=== PATIENT | female | born 1990 | race Caucasian/White ===

== ENCOUNTER 2017-10-17 17:30 | Observation (INO) | payer MEDICAID ==
[2017-10-17] MEDS ORDERED: Sodium Chloride 0.9% 5 ML Syringe FLUSH PRN (17:45)
[2017-10-17] MEDS ORDERED: Sodium Chloride 0.9% 1,000 ML IV SCH (17:45)
[2017-10-17] MEDS: Ondansetron 4 MG/2 ML SDV IV PRN ×2 (18:36→22:36)
[2017-10-17] MEDS ORDERED: PROMETHAZINE TOP PRN (18:44)
[2017-10-17] MEDS ORDERED: Albuterol HFA 18 Gm Inhaler INH PRN (18:44)
[2017-10-17] MEDS: Dextrose 5%-0.45% NaCl 1,000 ML IV SCH (19:52)
[2017-10-17] MEDS: Piperacillin/Tazobactam 3.375 GM in Sodium Chloride 0.9% 50 ML IV SCH (20:00)
[2017-10-17] MEDS ORDERED: Piperacillin/Tazobactam/Dext 3.375 GM in Premix Bag 1 BAG IV ONE (20:00)
[2017-10-17] MEDS: MICONAZOLE TOP SCH (22:20)
[2017-10-17] MEDS: Acetaminophen 325 MG Tab PO PRN (22:40)
[2017-10-17] MEDS ORDERED: Acetaminophen 325 MG Tab ONE (22:46)
[2017-10-18] MEDS: Piperacillin/Tazobactam 3.375 GM in Sodium Chloride 0.9% 50 ML IV SCH ×2 (02:07→08:26)
[2017-10-18] MEDS: Ondansetron 4 MG/2 ML SDV IV PRN ×4 (06:37→20:36)
[2017-10-18] MEDS: Dextrose 5%-0.45% NaCl 1,000 ML IV SCH ×2 (06:59→18:22)
[2017-10-18 07:37] LABS: CHLORIDE,CL 102 mmol/L (98-115); SODIUM,NA 134 mmol/L (136-145)
[2017-10-18] MEDS: Acetaminophen 325 MG Tab PO PRN (08:30)
[2017-10-18] MEDS: busPIRone 5 MG Tab PO SCH ×2 (10:36→23:23)
[2017-10-18] MEDS: Venlafaxine 37.5 MG Cap.ER PO SCH (10:36)
--- NOTE | 2017-10-18 12:51 | PN ---
10/18/2017 PATIENT NAME: JEREMY DUMONT CHIEF COMPLAINT: Overall does feel much better. Still has ongoing suprapubic lower abdominal tenderness. BRIEF HISTORY: This 27-year-old female was admitted for an acute cystitis along with a vaginal yeast infection. She had been admitted also with severe nausea and vomiting with hyperemesis gravidarum. She is currently a G3, P1, approximately eight weeks intrauterine , admitted yesterday from the [facility] by Tameka Wayne and started on broad-spectrum antibiotics. A culture preliminary reading does appear to be contamination. The patient had been seen in the [place] [facility] approximately three days ago, diagnosed with UTI, started on Macrobid. However, by the time she had only taken one dose when she had seen a provider, she had been having severe nausea and vomiting with hyperemesis gravidarum. She had been having some diarrhea for about three days prior to admission. She also notes a clear vaginal discharge and a strong odor to her urine. Wet prep yesterday at [facility] did show yeast. LABS: At [facility] 13,000; [facility] yesterday's October 17 13,800; this morning 12.2, percent of neutrophilia 74%. Sodium 134, potassium 3.6, BUN and creatinine negative. GFR greater than 60. Urine turbid appearance, elevated specific gravity greater than 1.030, moderate occult blood, many sediments, few bacteria, negative leukocyte esterase, negative nitrites. Preliminary culture at [facility] this morning shows likely contaminant. Urine culture at [facility] on 10/15/2017, contaminated. Self-induced wet prep yesterday showed yeast. PHYSICAL EXAM: VITAL SIGNS: Temperature 98.3, T-max 98.3, blood pressure 99/63, heart rate 88 and regular, and O2 sats 95% on room air. GENERAL: The patient is alert and oriented. No acute distress. No shortness of breath. No chest pain. No edema. Mild suprapubic abdominal pain. LUNGS: Are clear to auscultation. CV: Regular in rate and rhythm. ORAL: Mucous cavity slightly dry. GI: Good radial and distal pulses. Hypotonic bowel tones. No rigidity. No guarding. Intake 2600, output 1800. Meal intake, dinner last night approximately 80%. IMPRESSION AND PLAN: 1. Urinary tract infection with acute cystitis complicated in the light of . Continue broad spectrum with Zosyn. Repeat urinary culture this morning. Continue IV fluids. 2. Vaginal yeast infection. Monistat. 3. Hyperemesis gravidarum with dehydration. She is improving. No vomiting this morning. Hydrate with IV fluids, Zofran p.r.n. OVERALL PLAN: We will continue with observation, hydration, IV antibiotics. We will see if we can narrow the spectrum down based off a repeat urinary culture today. Monitor labs and white count. Monitor for any complications. Monistat. Zosyn. Continue with IV fluids. Likely can anticipate discharge in the a.m. /[id number]/MODL
[2017-10-18] MEDS: Piperacillin/Tazobactam/Dext 3.375 GM in Premix Bag 1 BAG IV SCH ×2 (13:33→20:44)
[2017-10-18] MEDS ORDERED: Ondansetron 4 MG/2 ML SDV IVPUSH ONE (15:37)
[2017-10-18] MEDS ORDERED: Piperacillin/Tazobactam 3.375 GM in Sodium Chloride 0.9% 50 ML IV SCH (20:00)
[2017-10-18] MEDS ORDERED: Doxylamine Succinate 25 MG Tab PO SCH (21:00)
[2017-10-18] MEDS ORDERED: Vitamin B6-pyridOXINE 50 MG Tab PO SCH (21:00)
[2017-10-18] MEDS: MICONAZOLE TOP SCH (22:30)
[2017-10-18] MEDS ORDERED: diphenhydrAMINE 25 MG Cap PO PRN (22:34)
[2017-10-18] MEDS ORDERED: Sodium Chloride 0.9% 500 ML IV ONE (22:45)
[2017-10-18] MEDS ORDERED: diphenhydrAMINE 50 MG/ML SDV ONE (22:48)
[2017-10-18] MEDS: diphenhydrAMINE 50 MG/ML SDV IM PRN (22:55)
[2017-10-19] MEDS: Ondansetron 4 MG/2 ML SDV IVPUSH PRN ×2 (01:30→07:28)
[2017-10-19] MEDS: Piperacillin/Tazobactam/Dext 3.375 GM in Premix Bag 1 BAG IV SCH ×4 (01:38→20:27)
[2017-10-19] MEDS: Dextrose 5%-0.45% NaCl 1,000 ML IV SCH (07:27)
[2017-10-19] MEDS: busPIRone 5 MG Tab PO SCH ×2 (08:26→21:15)
[2017-10-19] MEDS: Venlafaxine 37.5 MG Cap.ER PO SCH (08:26)
[2017-10-19] MEDS ORDERED: Prochlorperazine 25 MG Supp RECTAL PRN (10:38)
--- NOTE | 2017-10-19 11:43 | PN ---
10/19/2017 PATIENT NAME: JEREMY DUMONT CHIEF COMPLAINT: Ongoing nausea and vomiting. The patient had medication adjustments and changes last night, however, overall she has less abdominal pain. No CVA tenderness. White count is still slightly elevated. HISTORY: This 27-year-old female was admitted for acute cystitis along with vaginal yeast infection. She had severe nausea and vomiting with hyperemesis gravidarum. She is currently G3, P1, approximately eight weeks and one day intrauterine , was admitted from the [facility] [place], Tameka Wayne, nurse practitioner, and placed on broad-spectrum antibiotics. Repeat culture reading shows no growth on urine. She had been seen in [facility] approximately three weeks ago, was diagnosed with UTI, started on Macrobid which she only had taken a dose. She had been having some severe nausea and vomiting with hyperemesis gravidarum. She has also been having some diarrhea for about three days prior to admission. She also noted a clear vaginal discharge and strong odor to her urine. A wet prep self-induced at the [facility] [place] did show yeast. Labs at the [facility], she had a white count of 13,000, at [facility] [place], it was 13,800, with mildly elevated neutrophilia, negative glucose, moderate occult blood on her urine, many sediments, few bacteria, negative leukocyte esterase and nitrites. PHYSICAL EXAMINATION: VITAL SIGNS: This morning, temperature 98.4, heart rate 88, blood pressure 122/80, O2 sats 96% on room air. LUNGS: Clear to auscultation. CV: Regular rate and rhythm. ABDOMEN: She no longer has lower abdominal pain. Hypotonic bowel tones. She is nauseated. She had vomited last night multiple times. The patient may times refuses her antinausea medicine. She was placed on Benadryl last night, she states this did not help her. She was also placed on another first-generation antihistamine doxylamine 25 mg p.o. at bedtime, however, she also stated that did help her. She was also started on vitamin B6 last night. LABORATORY DATA: White count 13.4, neutrophils increased to 80%. Sodium 134, potassium 3.6, BUN 7, creatinine 0.68, calcium 8.6. Biology: Urine culture after one day, no growth. Intake 3300, output 3200. IMPRESSION AND PLAN: 1. Urinary tract infection with acute cystitis, complicated in the light of her . Likely could continue with broad-spectrum Zosyn at this time. Possible discharge on Cipro or Augmentin. Repeat urine culture yesterday shows no growth after one day, however, I think she is improving on her acute cystitis. 2. Vaginal yeast infection, Monistat. 3. Hyperemesis gravidarum with mild dehydration. This is ongoing. We will change fluids to isotonic saline, decrease the rate to 75. Discontinue or hold her Zofran. Place her on prochlorperazine rectal or p.o. We will encourage the patient take medications despite how she feels as far as her antinausea medications. As observation, she will continue with observation for one more day in hopes for us to improve in her nausea and vomiting. /[id number]/MODL MTDD
[2017-10-19] MEDS: Prochlorperazine 5 MG Tab PO SCH ×3 (11:50→23:18)
[2017-10-19] MEDS: Sodium Chloride 0.9% 1,000 ML IV SCH (11:53)
[2017-10-19] MEDS: diphenhydrAMINE 50 MG/ML SDV IM PRN (20:29)
[2017-10-19] MEDS: MICONAZOLE TOP SCH (21:15)
[2017-10-20] MEDS: Piperacillin/Tazobactam/Dext 3.375 GM in Premix Bag 1 BAG IV SCH ×2 (01:47→07:48)
[2017-10-20] MEDS: Sodium Chloride 0.9% 1,000 ML IV SCH (01:52)
[2017-10-20] MEDS: Prochlorperazine 5 MG Tab PO SCH (04:46)
[2017-10-20] MEDS: busPIRone 5 MG Tab PO SCH (08:21)
[2017-10-20] MEDS: Venlafaxine 37.5 MG Cap.ER PO SCH (08:25)
[2017-10-20] MEDS ORDERED: Metoclopramide 10 MG Tab PO PRN (10:07)
[2017-10-20] MEDS ORDERED: Nitrofurantoin Monohydrate/Macrocrystalline 100 MG Cap PO SCH (10:15)
[2017-10-20] MEDS ORDERED: Pantoprazole 40 MG Vial IVPUSH SCH (10:30)
--- NOTE | 2017-10-20 12:09 | PN ---
10/20/2017 PATIENT NAME: JEREMY DUMONT SHAYNE SUBJECTIVE: This is a 27-year-old patient who is eight weeks . She came to the clinic with fatigue, nausea, vomiting. She was found to have a vaginal yeast infection along with a urinary tract infection along with hyperemesis gravidarum. She was admitted to the hospital at that time for IV fluids. Today, the patient was able eat a little breakfast. She could keep it down. She still does not feel well. She denies any burning with urination. She denies any vaginal discharge at this time. She just does not have much of an appetite. She still feels nauseated. She denies any abdominal pain. She says she has had a few episodes of diarrhea. OBJECTIVE: VITAL SIGNS: Today, temperature is 99.5, pulse is 82, blood pressure is 105/68, respiratory rate 18, oxygen saturation on room air is 95%. GENERAL: This is a young female in no acute distress. LUNGS: Sounds are clear throughout lung yap. ABDOMEN: Nontender and nondistended. Bowel sounds present x4. HEART: Tones are regular rate and rhythm. No pedal edema noted. LABORATORY DATA: The patient's lab work that was obtained yesterday, CBC shows a white count elevated at 13.4 with a shift to the left. Her ANC is 80.7, it is elevated. Her chemistry panel that was obtained on 10/18/2017 was unremarkable. I did repeat the patient's urinalysis today, its shows, microscopic exam shows moderate amount of epithelial cells, moderate amount of bacteria, moderate amount about amorphous sediment. CBC is pending today. IMPRESSION AND PLAN: 1. Acute cystitis. Plan: The patient's CBC from the showed a white count at 12.2 and her neutrophil percentage count was 74.3. Her CBC that was drawn yesterday showed a white count elevated at 13.4 with her neutrophil percentage at 80.7. I repeated the urinalysis today and it shows moderate amount of bacteria. I am going to stop the patient's Zosyn IV, start her on Macrobid 100 mg twice a day orally. I did talk to pharmacist if this safe with eight week's . I also did order a urine culture. I did say that the CBC is pending at this time that was drawn today. 2. Vaginal yeast infection. Continue with Monistat suppository at bedtime. 3. Hyperemesis gravidarum, Class C. Plan: I did stop the scheduled Compazine. She can have it p.r.n. every 12 hours. Did add some Reglan for nausea. She can have every 6 hours as needed for nausea. I am going to stop the IV fluids and see how she is able to eat and drink. She was able to eat breakfast this morning. Continue with a bland diet. I also did add Protonix 40 mg IV daily in the morning to help with the nausea. 4. History of anxiety with depression. Plan: We will continue the Effexor 75 mg daily. This is safe in early . I did discontinue patient's BuSpar due to eight weeks . She can have Benadryl as needed for nausea or anxiety. OVERALL PLAN: We will see how the patient does with eating lunch today and we will see what her CBC shows. Possible discharge later today or tomorrow morning. /[id number]/MODL
[2017-10-20 15:00] VITALS: BP 120/75
--- NOTE | 2017-10-21 07:49 | DISCH ---
ADMITTING DIAGNOSIS: Acute cystitis, hyperemesis gravidarum, and vaginal yeast infection. FINAL DIAGNOSES: Acute cystitis, vaginal yeast infection, and hyperemesis gravidarum. BRIEF HISTORY AND ESSENTIAL PHYSICAL FINDINGS: This is a 27-year-old female patient, who presented to the clinic with concerns about weakness, nausea, vomiting, some vaginal discharge that was clear with a foul odor, some burning with urination. She just did not feel well. The patient was found to have a vaginal yeast infection along with acute cystitis along with hyperemesis gravidarum, so she was admitted at that time. SIGNIFICANT LABS XRAYS AND CONSULTATION FINDINGS: The patient's lab work that was obtained on 10/18/2017 showed a white count elevated at 12.2. Chemistry panel was unremarkable. Repeat CBC that was obtained on 10/19/2017 showed a white count elevated at 13.4, ANC was 80.7. Urinalysis that was obtained on 10/17/2017 when she originally came in showed many amorphous sediment, few bacteria. Repeat urinalysis that was obtained on the day of discharge on 10/20/2017 showed trace of ketones, small amount of blood. Microscopic exam showed moderate bacteria, moderate amorphous sediment, moderate epithelial cells, trace of leukocyte esterase. CBC that was obtained on the day of discharge, white count was 10.1, neutrophil percentage was down to 77.7. COURSE IN THE HOSPITAL WITH COMPLICATIONS IF ANY: The patient continued to be nauseated most of the hospital stay. She had episodes of nausea and vomiting. She was able to eat on the day of discharge, but she still continued to be nauseated. Vaginal discharge did improve. CONDITION TREATMENT AND FINAL DISPOSITION ON DISCHARGE AND PROGNOSIS: Condition is stable. Prognosis is fair. IMPRESSION AND PLAN: 1. Acute cystitis. Plan, I am going to discharge the patient home on Macrobid 100 mg twice a day for 5 more days. I did talk to the pharmacist. This is category B with . I did obtain a urine culture today, the day of discharge, as this is pending at this time. Encouraged the patient to try and drink plenty of fluids. Also, will discharge the patient on a cran tab daily. 2. Vaginal yeast infection. Plan, continue with the Monistat suppository at bedtime for 3 more days. 3. Hyperemesis gravidarum. Plan, continue the patient at home on vitamin B6 with Unisom. I am going to send her home with some as-needed prescriptions of Compazine and Reglan to help with the nausea. I discussed a bland diet, small meals with the patient. She will follow up in the clinic with Tameka Wayne, Nurse Practitioner. We will try to get the patient in for her OB initial consult as soon as possible. /[id number]/MODL MTDD
== END 2017-10-20 17:30 | disposition home or self-care (01) ==
LOC: KA.MS 17:30
PROVIDERS: ADMIT Nurse Practitioner Family; ATTEND Family Medicine
DX: O23.11 Infections of bladder in pregnancy, first trimester (principal); N30.00 Acute cystitis without hematuria; O98.811 Other maternal infectious and parasitic diseases complicating pregnancy, first trimester; B37.3 Candidiasis of vulva and vagina; O21.1 Hyperemesis gravidarum with metabolic disturbance; E86.0 Dehydration; Z3A.08 8 weeks gestation of pregnancy; Z79.899 Other long term (current) drug therapy
CPT/HCPCS: 36415; 51701; 80048; 81001; 85025; 87086; 96361; 96365; 96366; 96372; 96375; 96376; A9270-GY; C9113; G0378; J1200; J2405; J2543; J7030; J7040; J7042; J7050; Q0164